=== PATIENT | male | born 1955 | race American Indian/Alaskan Native ===

== ENCOUNTER 2018-04-10 14:07 | Emergency (ER) | payer SELFPAY ==
[2018-04-10 14:20] VITALS: BP 153/100
[2018-04-10] MEDS ORDERED: TYLENOL PO ONE (16:14)
[2018-04-10] MEDS ORDERED: TYLENOL ONE (16:18)
[2018-04-10] MEDS ORDERED: NORCO 5/325 PO ONE (21:21)
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
--- NOTE | 2018-04-10 21:41 | XRay Report ---
FINAL REPORT EXAM: XR HAND 3+V LT HISTORY: pain after lifting objects TECHNIQUE: 3 views of left hand PRIORS: None. FINDINGS: No fracture is identified. No dislocation seen. Joint spaces are within normal limits. No erosive bony change identified. Carpal bones maintain normal alignment. Distal radius and ulna are intact. No radiopaque foreign bodies seen. IMPRESSION: Negative hand series
== END 2018-04-10 22:00 | disposition home or self-care (01) ==
LOC: ED 14:07
DX: S63.642A Sprain of metacarpophalangeal joint of left thumb, initial encounter (principal); S63.502A Unspecified sprain of left wrist, initial encounter; I10 Essential (primary) hypertension; F17.200 Nicotine dependence, unspecified, uncomplicated; W17.89XA Other fall from one level to another, initial encounter; Y93.89 Activity, other specified; Y99.8 Other external cause status; Y92.69 Other specified industrial and construction area as the place of occurrence of the external cause
CPT/HCPCS: 93005; 93010